=== PATIENT | male | born 1950 | race Caucasian/White ===

== ENCOUNTER 2023-11-24 09:49 | Emergency (ER) | payer MEDICARE, OTHER ==
[~2023-11-24] VITALS: Ht 175.3 cm; Wt 90.9 kg
[2023-11-24 10:02] VITALS: TEMP 98.2
[2023-11-24] MEDS ORDERED: Morphine 4 MG/ML VIAL IV ONE (10:30)
[2023-11-24] MEDS ORDERED: Ondansetron 4 MG/2 ML VIAL IV ONE (10:30)
[2023-11-24] MEDS ORDERED: NS 1,000 ML IV ONE (10:30)
[2023-11-24 10:41] LABS: HEMATOCRIT 47.5 % (42.0-52.0); HEMOGLOBIN 16.7 g/dl (13.5-18.0); MEAN CELL VOLUME 89 fl (80.0-100.0); MEAN CORPUSCULAR HEMOGLOBIN 31 pg (27-31); MEAN CORPUSCULAR HGB CONC 35 g/dl (33.0-37.0); MEAN PLATELET VOLUME 10.3 fl (7.4-10.4); PLATELET COUNT 253 K/mm3 (130-400); RED BLOOD COUNT 5.32 M/mm3 (4.20-5.60); REDCELL DISTRIBUTION WIDTH-CV 12.1 % (11.5-14.5)
[2023-11-24 11:06] LABS: BAND 1 % (0-10); LYMPHOCYTE 2 % (20.0-51.0); NEUTROPHILS 95 % (42.0-75.2)
[2023-11-24 11:07] LABS: PLATELET ESTIMATE NORMAL (NORMAL)
[2023-11-24 11:15] LABS: ALBUMIN 4.5 g/dL (3.4-4.8); CALCIUM 10.4 mg/dL (8.4-10.2); CREATININE, serum 1.29 mg/dL (0.72-1.25); POTASSIUM 3.9 mEq/L (3.5-4.5); TOTAL PROTEIN 8.4 g/dl (6.2-8.1)
[2023-11-24] MEDS ORDERED: Iohexol 300 - 100 ML VIAL IV ONE (11:39)
[2023-11-24] MEDS ORDERED: NS 100 ML IV ONE (11:40)
[2023-11-24] MEDS ORDERED: CIPRO 500MG TA500 MG PO (12:32)
[2023-11-24] MEDS ORDERED: FLAGYL500 MG PO (12:32)
[2023-11-24 12:37] LABS: PH 6.5 (5.0-8.5); URINE APPEARANCE CLEAR (CLEAR/HAZY); URINE BLOOD TRACE (NEGATIVE); URINE COLOR YELLOW (YELLOW); URINE GLUCOSE NEGATIVE (NEGATIVE); URINE KETONE NEGATIVE (NEGATIVE); URINE NITRATE NEGATIVE (NEGATIVE); URINE PROTEIN(semi-quant) TRACE (NEGATIVE); URINE UROBILINOGEN 0.2 E.U/dL (0.2-1.0)
[2023-11-24 12:40] LABS: COLLECTION METHOD CLEAN CATCH
[2023-11-24] MEDS ORDERED: NORCO 325 MG-51 TAB PO (13:24)
[2023-11-24 13:33] VITALS: BP 128/91; PULSE 98
== END 2023-11-24 13:48 | disposition home or self-care (01) ==
LOC: COL.ER 09:49
PROVIDERS: Physician Assistant
DX: K57.32 Diverticulitis of large intestine without perforation or abscess without bleeding (principal); K80.20 Calculus of gallbladder without cholecystitis without obstruction
CPT/HCPCS: J2270; J2405; J7030; Q9967